=== PATIENT | female | born 1950 | race Caucasian/White ===

== ENCOUNTER → 2018-10-01 | Outpatient (CLI) | payer MEDICARE ==
--- NOTE | 2018-10-01 11:41 | Diagnostic Imaging Report ---
INDICATION: Chronic left knee pain, no known injuries. EXAMINATION: Left knee, 10/01/2018. FINDINGS: Medial compartment demonstrates narrowing and spurring. There is moderate joint space narrowing. Patellofemoral joint space is narrowed as well moderate in nature with associated spurring. No fractures. No dislocations. Very small joint effusion. IMPRESSION: 1. Degenerative findings with a small joint effusion. 2. No fractures identified. Dictated by: Dictated on workstation # [id number]
== END ==
LOC: RAD FS 10:17
PROVIDERS: ATTEND Nurse Practitioner
DX: M17.12 Unilateral primary osteoarthritis, left knee (principal)
CPT/HCPCS: 73562

== ENCOUNTER → 2019-03-14 | Outpatient (CLI) | payer MEDICARE ==
[~2019-03-14] VITALS: Ht 157 cm; Wt 97.0 kg
[~2019-03-14] MED LIST: CATHETER FLUSH 10 ML SYR IV PRN; REGADENOSON 0.4 MG/5 ML SYR (LEXISCAN) IV ONE
[2019-03-14 09:10] VITALS: BP 168/85
--- NOTE | 2019-03-21 13:57 | Cardiology Stress Test Report ---
Stress Test Report Type of NM Stress Test: Test Type: LEXISCAN 0.4MG/5ML Date of Procedure/Referring: Date of Procedure: Mar 14, 2019 PCP Bell Byrnes MD Admitting Physician Cole Molina DO Indications: Shortness of breath Baseline Heart Rate: 67 Baseline Blood Pressure: Blood Pressure Systolic: 168 Blood Pressure Diastolic: 85 Baseline EKG: Baseline EKG: sinus rhythm Summary & Conclusion: Summary: The patient was brought to the stress lab after informed consent was taken. Stress test was performed according to the Lexiscan protocol. 0.4 mg of IV Lexiscan was given. Low-grade exercise was performed. Baseline EKG showed sinus rhythm at 67 BPM. Initial blood pressure was 168/85 mmHg. Maximum heart rate was 79 bpm and blood pressure 146/87 mmHg. Patient did not have any chest pain, arrhythmias or ST segment changes during the stress test. 10.78 mCi of Myoview were given for rest imaging and 30.7 mCi of Myoview given for stress imaging. Transient ischemic dilatation score 1.07, EF 75 percent. Normal wall motion. Normal myocardial perfusion imaging during rest and stress. Conclusion: Pharmacological stress test was negative for ischemia. Normal LV function with no wall motion abnormalities. Normal myocardial perfusion imaging during rest and stress. Bell BYRNES MD Mar 21, 2019 13:57 POS
== END ==
LOC: CARD 06:52
PROVIDERS: ATTEND Internal Medicine Interventional Cardiology
DX: I11.0 Hypertensive heart disease with heart failure (principal); I50.32 Chronic diastolic (congestive) heart failure; R00.2 Palpitations; G45.9 Transient cerebral ischemic attack, unspecified; R06.02 Shortness of breath
CPT/HCPCS: 78452; 93017

== ENCOUNTER → 2019-04-16 | Outpatient (CLI) | payer MEDICARE | LOC: CARD 13:27 | PROVIDERS: ATTEND Internal Medicine Interventional Cardiology | DX: I11.0 Hypertensive heart disease with heart failure (principal); G45.9 Transient cerebral ischemic attack, unspecified; I50.32 Chronic diastolic (congestive) heart failure | CPT/HCPCS: 93306 ==

== ENCOUNTER → 2020-04-02 | Outpatient (CLI) | payer MEDICARE ==
--- NOTE | 2020-04-02 09:09 | Diagnostic Imaging Report ---
Indication: Lower back pain COMPARISON: Unavailable TECHNIQUE: 3 radiographs lumbar spine dated 04/02/2020 FINDINGS: Surgical clips within the right upper quadrant abdomen. Partial sacralization of the L5 vertebral body. Alignment of the lumbar spine is well maintained. The sacroiliac joints are intact. Vertebral body heights are well-maintained. No acute fracture or dislocation. No destructive osseous process. Mild vascular calcifications. Scattered facet joint degenerative changes, greatest within the lower lumbar spine. IMPRESSION: No acute osseous abnormality with mild degenerative changes. Dictated by: Dictated on workstation # [id number]
== END ==
LOC: RAD FS 08:40
PROVIDERS: ATTEND Emergency Medicine
DX: M47.816 Spondylosis without myelopathy or radiculopathy, lumbar region (principal)
CPT/HCPCS: 72100

== ENCOUNTER → 2021-05-20 | Outpatient (CLI) | payer MEDICARE ==
--- NOTE | 2021-05-20 13:27 | Diagnostic Imaging Report ---
INDICATION: Thoracic vertebral fracture. FINDINGS: AP and lateral views of lumbar spine are obtained. There is moderate anterior compression fracture deformity in the lower thoracic spine. This is likely T12 vertebral body. No paraspinous abnormality is identified. Otherwise, there is mild endplate spurring throughout the thoracic region. Surgical clips are seen in the right anterior chest wall as well as right upper quadrant. IMPRESSION: Mild thoracic spondylosis with moderate anterior compression fracture deformity at T12. Dictated by: Dictated on workstation # [id number]
== END ==
LOC: RAD FS 13:04
PROVIDERS: ATTEND Emergency Medicine
DX: M47.814 Spondylosis without myelopathy or radiculopathy, thoracic region (principal); S22.081A Stable burst fracture of T11-T12 vertebra, initial encounter for closed fracture; X58.XXXA Exposure to other specified factors, initial encounter
CPT/HCPCS: 72072

== ENCOUNTER → 2021-07-29 | Outpatient (CLI) | payer OTHER, MEDICARE ==
--- NOTE | 2021-07-29 10:37 | Diagnostic Imaging Report ---
Indication: Followup thoracic spine fracture. Time of Exam: 10 0 9:00 AM Correlation is made with prior radiograph from 05/20/2021. Curvature and alignment of thoracic spine is normal. The vertebral body fracture involving T12 is again noted. Overall stature is similar to prior study with no further loss of stature. Remaining thoracic vertebrae show normal stature. There is generalized spondylosis. IMPRESSION: Stable T12 fracture when compared exam from 05/20/2021. Dictated by: Dictated on workstation # [id number]
== END ==
LOC: RAD FS 09:56
PROVIDERS: ATTEND Emergency Medicine
DX: S22.081D Stable burst fracture of T11-T12 vertebra, subsequent encounter for fracture with routine healing (principal); M46.04 Spinal enthesopathy, thoracic region; M62.830 Muscle spasm of back; X58.XXXD Exposure to other specified factors, subsequent encounter
CPT/HCPCS: 72072

== ENCOUNTER → 2022-02-01 | Outpatient (CLI) | payer MEDICARE | LOC: CARDFS 12:34 | PROVIDERS: ATTEND Internal Medicine Cardiovascular Disease | DX: I51.7 Cardiomegaly (principal); I35.8 Other nonrheumatic aortic valve disorders | CPT/HCPCS: 93306 ==

== ENCOUNTER → 2022-02-03 | Outpatient (CLI) | payer MEDICARE | LOC: CARD 08:00 | PROVIDERS: ATTEND Internal Medicine Cardiovascular Disease | DX: I51.7 Cardiomegaly (principal) | CPT/HCPCS: 93225; 93226 ==

== ENCOUNTER → 2022-02-04 | Outpatient (CLI) | payer MEDICARE ==
[~2022-02-04] MED LIST changes: -CATHETER FLUSH 10 ML SYR IV PRN; +CATHETER FLUSH 10 ML SYR IVP PRN
[2022-02-04 09:25] VITALS: BP 182/83
--- NOTE | 2022-02-07 10:55 | STRESS TEST ---
DATE OF SERVICE: 02/04/2022 RESTING AND POST REGADENOSON TECHNETIUM-99M TETROFOSMIN SPECT CT IMAGING ORDERING PHYSICIAN: Dr. Salinas. PRIMARY PHYSICIAN: Dr. Molina. CLINICAL DIAGNOSES: Palpitations. Baseline images were carried out after injection of 10.6 mCi of technetium-99m Tetrofosmin. This was followed by 0.4 mg of regadenoson and 30.1 mCi of technetium-99m Tetrofosmin. The electrocardiogram showed sinus rhythm at baseline. Occasional premature ventricular contractions were seen on this study. The patient reported nausea following regadenoson infusion, which resolved in a few minutes. Review of images at rest and following stress does not indicate any significant perfusion defects consistent with myocardial ischemia or infarction. Gated images show normal global left ventricular systolic function with normal regional wall motion. Left ventricular ejection fraction is calculated to be 72%. CONCLUSIONS: 1. No evidence of any significant myocardial ischemia or infarction on this study. 2. Normal regional wall motion. 3. Normal global left ventricular systolic function with a calculated ejection fraction of 72%. Job ID: [id number] DocumentID: [id number] Dictated Date: 02/07/2022 09:13:24 Manager Billing Date: 02/07/2022 10:55:10 Dictated By: FREDY SALINAS MD, MA, FACP, FACC,
== END ==
LOC: CARD 08:00
PROVIDERS: ATTEND Internal Medicine Cardiovascular Disease
DX: R00.2 Palpitations (principal)
CPT/HCPCS: 78452; 93017; A9502